=== PATIENT | male | born 1960 | race Caucasian/White ===

== ENCOUNTER → 2024-08-13 09:59 | Outpatient (REF) | payer OTHER, SELFPAY | LOC: HWRAD 09:59 | PROVIDERS: ATTENDING PHYSICIAN Family Medicine | DX: Z00.00 Encounter for general adult medical examination without abnormal findings (principal); Z13.220 Encounter for screening for lipoid disorders; Z12.5 Encounter for screening for malignant neoplasm of prostate; R05.3 Chronic cough | CPT/HCPCS: 71046 ==